=== PATIENT | female | born 1950 | race Native Hawaiian/Other Pacific Islander ===

== ENCOUNTER 2018-03-21 07:51 | Outpatient (CLI) | payer OTHER | END 2018-03-21 19:12 | disposition home or self-care (01) | LOC: NM 07:51 | DX: I25.89 Other forms of chronic ischemic heart disease (principal); R53.83 Other fatigue | CPT/HCPCS: A9500; J2785 ==

== ENCOUNTER 2018-04-07 14:03 | Outpatient (CLI) | payer OTHER | END 2018-04-07 19:28 | disposition home or self-care (01) | LOC: MAMMO 14:03 | DX: Z12.31 Encounter for screening mammogram for malignant neoplasm of breast (principal) ==

== ENCOUNTER 2023-06-22 13:04 | Outpatient (CLI) | payer OTHER | END 2023-06-22 18:59 | disposition home or self-care (01) | LOC: MAMMO 13:04 | PROVIDERS: ATTEND Internal Medicine | DX: Z12.31 Encounter for screening mammogram for malignant neoplasm of breast (principal) ==